=== PATIENT | female | born 1995 | race African-American/Black ===

== ENCOUNTER 2017-01-22 14:19 | Emergency (ER) | payer OTHER, SELFPAY ==
[2017-01-22 15:08] LABS: Bilirubin Moderate (Negative); Glucose, Urine (Dipstick) Negative (Negative)
[2017-01-22 15:11] LABS: Blood, Urine Large (Negative); Nitrite Negative (Negative)
[2017-01-22 15:20] LABS: Ketone, Urine 15 mg/dL (Negative)
[2017-01-22 15:21] LABS: Protein, Urine (Dipstick) > or equal to 300 mg/dL (Neg-Trace)
[2017-01-22 15:29] LABS: Bacteria/HPF Rare-Few HPF (None Seen); Hyaline Casts/LPF NONE SEEN LPF (0-3 Hyaline); RBC/HPF GREATER THAN 50-TNTC HPF (0-3)
[2017-01-22 16:01] LABS: #Eosinphils 0.1 thou/uL (0.0-0.7); #Lymphocytes 0.8 thou/uL (1.20-3.40); #Monocytes 0.3 thou/uL (0.11-0.59); #Neutrophils 2.7 thou/uL (1.40-6.50); %Basophils 0.6 % (0.0-1.0); %Eosinophils 1.8 % (0.0-10.0); %Lymphocytes 20.5 % (28.0-48.0); %Monocytes 7.2 % (0.0-4.0); Mean Platelet Volume 10.6 fL (7.4-10.4); Red Blood Cell (RBC) Count 3.53 mill/uL (4.00-5.20); White Blood Cell (WBC) Count 3.9 thou/uL (4.8-10.8)
[2017-01-22 16:19] LABS: Ovalocytes SLIGHT = 2-5 cells (100X) (0-1/hpf); Polychromasia SLIGHT = 2-3 cells (100X) (0-2/hpf); Target Cells SLIGHT = 2-5 cells (100X) (0-1/hpf)
[2017-01-22 16:20] LABS: ALT (SGPT) 57 U/L (8-55); AST (SGOT) 97 U/L (5-34); Alkaline Phosphatase 252 U/L (40-150); Anion Gap 10 mmol/L (10-20); BUN (Urea Nitrogen) 8 mg/dL (7.0-18.7); Bilirubin, Total 1.4 mg/dL (0.2-1.2); CK (CPK) 245 U/L (29-168); Calc. Creatinine Clearance 0 mL/min (70-130); Calcium 8.7 mg/dL (7.8-10.44); Carbon Dioxide 24 mmol/L (22-29); Chloride 105 mmol/L (98-107); Estimated GFR-MDRD Greater than 90; Globulin 4.8 g/dL (2.4-3.5); Protein, Total 7.8 g/dL (6.0-8.3)
[2017-01-22] MEDS ORDERED: Lidocaine 1% PF 5 ML VIAL ONE (16:41)
[2017-01-22] MEDS ORDERED: Azithromycin 250 MG TAB ONE (16:41)
[2017-01-22] MEDS ORDERED: cefTRIAXone\\ROCEPHIN 250 MG VIAL ONE (16:41)
== END 2017-01-22 17:20 | disposition home or self-care (01) ==
LOC: ERS 14:19
DX: N72 Inflammatory disease of cervix uteri (principal); N39.0 Urinary tract infection, site not specified
CPT/HCPCS: 36415; 80053; 81003; 81015; 81025; 82550; 85025; 87077; 87086; 87186; 87480; 87491; 87510; 87591; 87660; 96372; 99406; J0696; J2001

== ENCOUNTER 2017-07-23 16:01 | Emergency (ER) | payer SELFPAY ==
--- NOTE | 2017-07-23 17:30 | RAD ---
3 VIEWS LEFT ANKLE: Date: 07/23/17 HISTORY: Left ankle pain and swelling for 2 weeks. FINDINGS: Ankle mortise is congruent. No fracture or dislocation is seen. There is prominent subcutaneous soft tissue swelling seen about the left ankle. IMPRESSION: Subcutaneous soft tissue swelling without evidence of an acute osseous abnormality. POS: [place]
== END 2017-07-23 17:43 | disposition home or self-care (01) ==
LOC: ERS 16:01
DX: S93.402A Sprain of unspecified ligament of left ankle, initial encounter (principal); X58.XXXA Exposure to other specified factors, initial encounter

== ENCOUNTER 2017-09-30 11:09 | Emergency (ER) | payer SELFPAY ==
[2017-09-30 11:34] LABS: Bilirubin Negative (Negative); Blood, Urine Negative (Negative); Clarity CLEAR (Clear); Glucose, Urine (Dipstick) Negative (Negative); Leukocyte Negative (Negative); Nitrite Negative (Negative); Protein, Urine (Dipstick) Negative (Neg-Trace); Specific Gravity, Urine 1.015 (1.002-1.036); pH, Urine 7.5 (5.0-9.0)
[2017-09-30 11:36] LABS: Pregnancy Test - Urine (BHCG) Negative (Negative); Pregu Control Background? CLEAR/WHITE (CLR/WHITE); Pregu Control Bar Appear? YES (CONTROL BAR); Specific Gravity 1.015 (1.002-1.036)
[2017-09-30 12:19] LABS: ALT (SGPT) 77 U/L (8-55); AST (SGOT) 127 U/L (5-34); Albumin 3.1 g/dL (3.5-5.0); Alkaline Phosphatase 282 U/L (40-150); Anion Gap 12 mmol/L (10-20); BUN (Urea Nitrogen) 9 mg/dL (7.0-18.7); Bilirubin, Total 1.3 mg/dL (0.2-1.2); Calc. Creatinine Clearance 0 mL/min (70-130); Calcium 8.5 mg/dL (7.8-10.44); Carbon Dioxide 19 mmol/L (22-29); Chloride 109 mmol/L (98-107); Estimated GFR-MDRD Greater than 90; Globulin 5.1 g/dL (2.4-3.5); Glucose 82 mg/dL (70-105); Lipase 54 U/L (8-78); Potassium 4.7 mmol/L (3.5-5.1); Protein, Total 8.2 g/dL (6.0-8.3); Sodium 135 mmol/L (136-145)
[2017-09-30 13:43] LABS: #Eosinphils 0.1 thou/uL (0.0-0.7); #Lymphocytes 1.1 thou/uL (1.20-3.40); #Monocytes 0.2 thou/uL (0.11-0.59); #Neutrophils 1.6 thou/uL (1.40-6.50); %Basophils 0.5 % (0.0-1.0); %Eosinophils 2.1 % (0.0-10.0); %Neutrophils 54.5 % (42.0-75.0); Mean Corpuscular HGB CONC 31.1 g/dL (32.0-36.0); Mean Corpuscular Hemoglobin 27.5 pg (27.0-31.0); Mean Corpuscular Volume 88.2 fL (78.0-98.0); Mean Platelet Volume 14.6 fL (7.4-10.4); Platelet Count 43 thou/uL (130-400); RBC Distribution Width 18.6 % (11.5-14.5); Red Blood Cell (RBC) Count 3.65 mill/uL (4.20-5.40); White Blood Cell (WBC) Count 2.9 thou/uL (4.8-10.8)
[2017-09-30 13:45] LABS: Anisocytosis SLIGHT = 6-15 cells (100X) (0-5/hpf); Burr Cells SLIGHT = 2-5 cells (100X) (0-1/hpf); Hypochromia SLIGHT = 6-15 cells (100X) (0-5/hpf); MDiff Complete? YES; Ovalocytes SLIGHT = 2-5 cells (100X) (0-1/hpf); PLT Morphology Comment Appears Decreased; Polychromasia SLIGHT = 2-3 cells (100X) (0-2/hpf); Target Cells SLIGHT = 2-5 cells (100X) (0-1/hpf); Tear Drops SLIGHT = 2-5 cells (100X) (0-1/hpf)
--- NOTE | 2017-09-30 15:39 | ULT ---
RIGHT UPPER QUADRANT ULTRASOUND: Date: 09-30-17 History: Abdominal pain. Comparison: None available. FINDINGS: Visualized portions of the pancreas, visualized portions of the IVC, and abdominal aorta demonstrate a normal sonographic appearance. The gallbladder is incompletely distended on this examination. Gallbladder wall appears thickened, th is may be related to incompletely distended nature of the gallbladder. No obvious gallbladder calculu s is visualized. There is no pericholecystic fluid identified. The common duct measures 0.3 cm in diameter which is within normal limits. The liver and right kidney demonstrate a normal sonographic appearance. The right kidney measures 9.2 cm in length. IMPRESSION: 1. Incomplete distention of the gallbladder. Gallbladder wall is thickened measuring 0.5 cm, but this may be secondary to the incompletely distended nature of the gallbladder. No gallbladder calculus is appreciated, and there is no pericholecystic fluid. Follow up gallbladder ultrasound is recommended . 2. Common duct is normal in caliber. POS: [facility]
== END 2017-09-30 14:50 | disposition home or self-care (01) ==
LOC: ERS 11:09
DX: R10.10 Upper abdominal pain, unspecified (principal); D61.818 Other pancytopenia
CPT/HCPCS: 76705; 80053; 81003; 81025; 83690; 85025

== ENCOUNTER 2017-11-17 10:50 | Emergency (ER) | payer MEDICAID, SELFPAY ==
[2017-11-17] MEDS ORDERED: diphenhydrAMINE 50 MG/ML VIAL ONE (11:32)
[2017-11-17] MEDS ORDERED: Metoclopramide HCl 10 MG/2 ML VIAL ONE (11:32)
--- NOTE | 2017-11-17 12:30 | CT ---
CT BRAIN: Date: 11/17/17 PROVIDED CLINICAL HISTORY: Headache. FINDINGS: No comparison. The ventricular system appears normal in size and morphology. There is no evidence for intracranial h emorrhage or mass effect. The extracranial soft tissues and osseous structures demonstrate an unremar kable CT appearance. IMPRESSION: No evidence for intracranial hemorrhage or mass effect. POS: [facility]
[2017-11-17 12:32] LABS: #Eosinphils 0.1 thou/uL (0.0-0.7); #Lymphocytes 1.1 thou/uL (1.20-3.40); #Monocytes 0.3 thou/uL (0.11-0.59); #Neutrophils 1.9 thou/uL (1.40-6.50); %Basophils 0.6 % (0.0-1.0); %Eosinophils 3.2 % (0.0-10.0); %Lymphocytes 32.2 % (21.0-51.0); %Monocytes 7.9 % (0.0-10.0); BHCG - Serum Negative (NEGATIVE); Hemoglobin 11.1 g/dL (12.0-16.0); Mean Corpuscular HGB CONC 31.8 g/dL (32.0-36.0); Mean Corpuscular Hemoglobin 30.8 pg (27.0-31.0); Mean Corpuscular Volume 96.9 fL (78.0-98.0); Mean Platelet Volume 9.7 fL (7.4-10.4); Platelet Count 47 thou/uL (130-400); Pregs Control Background? CLEAR/WHITE (CLR/WHITE); Pregs Control Bar Appear? YES (CONTROL BAR); RBC Distribution Width 19.3 % (11.5-14.5); Red Blood Cell (RBC) Count 3.59 mill/uL (4.20-5.40); White Blood Cell (WBC) Count 3.4 thou/uL (4.8-10.8)
[2017-11-17 12:47] LABS: ALT (SGPT) 56 U/L (8-55); AST (SGOT) 95 U/L (5-34); Albumin 2.9 g/dL (3.5-5.0); Alkaline Phosphatase 249 U/L (40-150); Anion Gap 9 mmol/L (10-20); BUN (Urea Nitrogen) 8 mg/dL (7.0-18.7); Calc. Creatinine Clearance 0 mL/min (70-130); Calcium 8.3 mg/dL (7.8-10.44); Carbon Dioxide 23 mmol/L (22-29); Chloride 109 mmol/L (98-107); Estimated GFR-MDRD Greater than 90; Globulin 4.6 g/dL (2.4-3.5); Glucose 77 mg/dL (70-105); Potassium 3.9 mmol/L (3.5-5.1); Protein, Total 7.5 g/dL (6.0-8.3); Sodium 137 mmol/L (136-145)
== END 2017-11-17 13:39 | disposition home or self-care (01) ==
LOC: ERS 10:50
DX: R51 Headache (principal); D69.6 Thrombocytopenia, unspecified; Z79.899 Other long term (current) drug therapy
CPT/HCPCS: 70450; 80053; 84703; 85025; 96365; 96375; J1200; J2765